=== PATIENT | male | born 1975 | race Two or more races ===

== ENCOUNTER 2021-04-14 06:28 | Emergency (ER) | payer SELFPAY ==
[~2021-04-14] VITALS: Ht 172.7 cm; Wt 105.0 kg
[2021-04-14 07:15] VITALS: BP 139/72
[2021-04-14] MEDS ORDERED: CYCL10TA19 PO (07:45)
--- NOTE | 2021-04-14 07:46 | PHYS DOC ---
Past Medical History Past Surgical History: No Surgical History General Adult EDM: Chief Complaint: BACK PAIN - NO INJURY HPI: HPI: Patient is a 45 year old male with history of diabetes who presents with left lower back pain. 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 States that he had a similar muscular strain on his right side a few months ago that resolved spontaneously. Describes the pain is constant, but worse with movement. He points out a few specific movements that exacerbate the pain. Pain is also worse when he deeply palpates the muscles in the left lumbar spine. Pain does not radiate into the legs or towards the abdomen. No trauma. Denies any numbness, weakness, saddle anesthesia, bowel/bladder incontinence, fever/chills. Is not on any immunosuppressive medications. No IVDU. Denies dark urine, hematuria, dysuria, urgency, frequency Review of Systems: Review of Systems: Constitutional: Denies fever or chills. [] Eyes: Denies change in visual acuity. [] HENT: Denies nasal congestion or sore throat. [] Respiratory: Denies cough or shortness of breath. [] Cardiovascular: Denies chest pain or edema. [] GI: Denies abdominal pain, nausea, vomiting, bloody stools or diarrhea. [] : Denies dysuria. [] Musculoskeletal: Reports left lower back pain Integument: Denies rash. [] Neurologic: Denies headache, focal weakness or sensory changes. [] Endocrine: Denies polyuria or polydipsia. [] Lymphatic: Denies swollen glands. [] Psychiatric: Denies depression or anxiety. [] Heart Score: C/O Chest Pain: No Allergies: Allergies: Allergies Coded Allergies Type Severity Reaction Last Updated Verified No Known Drug Allergies 04/14/21 No Physical Exam: PE: Constitutional: Well developed, well nourished, no acute distress, non-toxic a ppearance. [] HENT: Normocephalic, atraumatic Neck: Normal range of motion, no tenderness, supple, no stridor. [] Cardiovascular:Heart rate regular rhythm, no murmur [] Lungs & Thorax: Bilateral breath sounds clear to auscultation [] Abdomen: Soft, nontender to deep palpation. Skin: Warm, dry, no erythema, no rash. [] Back: No midline spinal tenderness to palpation. He does have tenderness with palpation of the paraspinal muscles on the left. Extremities: No tenderness, no cyanosis, no clubbing, ROM intact, no edema. [] Neurologic: Alert and oriented X 3, normal motor function, normal sensory function, no focal deficits noted. Specifically 5/5 strength bilaterally in: Hip flexion Hip adduction Knee flexion/extension Ankle plantar/dorsiflexion Extension of the great toe Psychologic: Affect normal, judgement normal, mood normal. [] Current Patient Data: Vital Signs: Vital Signs Date Time Temp Pulse Resp B/P (MAP) Pulse Ox O2 Delivery O2 Flow Rate FiO2 04/14/21 07:15 98.5 56 14 139/72 (94) 98 Room Air 98.5 EKG: EKG: [] Radiology/Procedures: Radiology/Procedures: [] Course & Med Decision Making: Course & Med Decision Making Pertinent Labs and Imaging studies reviewed. (See chart for details) 45-year-old male presents with left lumbar back pain. Presentation consistent with muscular strain. No hematuria, dysuria, urgency, frequency to suggest kidney stone or pyelonephritis. No weakness/numbness, radicular pain, or other symptoms suggest spinal injury, cord, or nerve root compression. No trauma to suggest a bony process. Do not feel that he would benefit from imaging or laboratory work-up in the emergency department. Will be discharged with a trial of Tylenol, ibuprofen, and cyclobenzaprine. Prasanth Disclaimer: Prasanth Disclaimer: This electronic medical record was generated, in whole or in part, using a voice recognition dictation system. Departure Departure Impression: Primary Impression: Strain of lumbar paraspinal muscle Disposition: 01 HOME / SELF CARE / HOMELESS Condition: STABLE Referrals: NO PCP (PCP) Patient Instructions: Low Back Strain with [facility]hab[facility] Additional Instructions: For pain tylenol and ibuprofen are best used on a schedule. Please alternate between the two. -Tylenol 1000 mg every 6 hours (do not exceed 4000 mg in one day) -Ibuprofen 600 mg every 6 hours. Take with food. Do not take for more than 1 week. For muscle spasm please take cyclobenzaprine 10 mg every 8 hours as needed. This can make you slightly sleepy or potentially dizzy so please take with care. Scripts Cyclobenzaprine Hcl (CYCLOBENZAPRINE HCL) 10 Mg Tablet 1 TAB PO TID, #21 TAB 0 Refills Prov: RALPH PULIDO MD 04/14/21 RALPH PULIDO MD Apr 14, 2021 07:45
== END 2021-04-14 08:20 | disposition home or self-care (01) ==
LOC: ER 06:28
DX: S39.012A Strain of muscle, fascia and tendon of lower back, initial encounter (principal); E11.9 Type 2 diabetes mellitus without complications; X50.9XXA Other and unspecified overexertion or strenuous movements or postures, initial encounter; Y93.89 Activity, other specified; Y92.89 Other specified places as the place of occurrence of the external cause; Y99.8 Other external cause status
CPT/HCPCS: 99283